=== PATIENT | female | born 1995 | race Caucasian/White ===

== ENCOUNTER 2017-04-27 14:04 | Emergency (ER) | payer OTHER ==
[~2017-04-27] VITALS: Ht 152.4 cm; Wt 126.7 kg
[2017-04-27 14:09] VITALS: TEMP 36.9; Ht 152.4 cm; Wt 126.7 kg
[2017-04-27 14:56] VITALS: BP 136/92; PULSE 98; O2SAT 97
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
== END 2017-04-27 14:57 | disposition home or self-care (01) ==
LOC: C.EDB 14:09 → C.EDD 14:57
DX: R51 Headache (principal); M54.2 Cervicalgia; V43.52XA Car driver injured in collision with other type car in traffic accident, initial encounter; Y92.410 Unspecified street and highway as the place of occurrence of the external cause